=== PATIENT | female | born 1995 | race African-American/Black ===

== ENCOUNTER 2018-08-15 01:11 | Day surgery (SDC) | payer SELFPAY ==
[2018-08-15] VITALS (9 sets, daily range): BP systolic 116–136; BP diastolic 66–78; PULSE 70–86; TEMP 98.4
[~2018-08-15] VITALS: Ht 170.2 cm; Wt 111.4 kg
[2018-08-15] MEDS ORDERED: SPRINTEC 35 MCG1 TAB PO (01:22)
[2018-08-15] MEDS ORDERED: ADDERALL20 MG PO (01:22)
[2018-08-15 01:35] LABS: COLLECTION METHOD CLEAN CATCH
[2018-08-15 01:42] LABS: MUCOUS Present /lpf; PH 5 (5-8); URINE APPEARANCE Hazy; URINE BACTERIA None Seen /hpf; URINE BILIRUBIN Negative (NEGATIVE); URINE BLOOD 3+ (NEGATIVE); URINE COLOR Yellow; URINE GLUCOSE Negative (NEGATIVE); URINE KETONE Negative (NEGATIVE); URINE LEUKOCYTE ESTERASE 2+ (NEGATIVE); URINE NITRATE Negative (NEGATIVE); URINE PROTEIN(semi-quant) Negative (NEGATIVE); URINE RBC 0-2 /hpf; URINE UROBILINOGEN Negative (NEGATIVE)
[2018-08-15 02:51] LABS: BASO # 0.1 (0.0-0.2); BASO % 0.6 % (0.0-2.0); EOS # 0.1 (0.0-0.7); EOS % 0.4 % (0-4.0); GRAN # 12.1 (1.4-6.5); GRAN % 87.9 % (42.2-75.2); HEMOGLOBIN 10.2 g/dl (12.5-16.0); MEAN CELL VOLUME 76 fl (80.0-100.0); MEAN CORPUSCULAR HEMOGLOBIN 23 pg (27.0-31.0); MEAN CORPUSCULAR HGB CONC 30 g/dl (33.0-37.0); MEAN PLATELET VOLUME 10.4 fl (7.4-10.4); MONO # 0.5 (0.1-0.6); MONO % 3.7 % (1.7-9.3); PLATELET COUNT 383 K/mm3 (130-400); RED BLOOD COUNT 4.53 M/mm3 (4.10-5.30); REDCELL DISTRIBUTION WIDTH-CV 15.4 % (11.5-14.5)
[2018-08-15 03:02] LABS: HEMATOCRIT 34.3 % (37.0-47.0)
[2018-08-15 03:10] LABS: ALBUMIN 4.5 gm/dL (3.5-5.0); BILIRUBIN,TOTAL 0.3 mg/dL (0.0-1.0); C-REACTIVE PROTEIN 0.8 mg/dL (0.0-0.9); CALCIUM 9.6 mg/dL (8.4-10.2); CREATININE, serum 0.52 (0.52-1.25); POTASSIUM 4.1 mmol/L (3.4-5.0); TOTAL PROTEIN 8.9 gm/dL (6.4-8.2)
[2018-08-15] MEDS ORDERED: IBU600 MG PO (10:29)
[2018-08-15] MEDS ORDERED: PERCOCET 325 MG1 TA2 PO (10:29)
--- NOTE | 2018-08-15 12:19 | NUR ---
PATIENT UP TO BATHROOM AND VOIDS LARGE AMOUNT. DENIES NEEDS.
== END 2018-08-15 13:15 | disposition home or self-care (01) ==
LOC: COL.ER 01:11 → OB 07:26 → LDRO 07:26
PROVIDERS: Nurse Practitioner
DX: D39.11 Neoplasm of uncertain behavior of right ovary (principal); N83.521 Torsion of right fallopian tube; F41.9 Anxiety disorder, unspecified; G47.419 Narcolepsy without cataplexy; Z79.899 Other long term (current) drug therapy
CPT/HCPCS: OP; J1100; J1170; J1885; J2405; J2704; J2710; J3010; J7030; Q9967